=== PATIENT | female | born 1950 | race Caucasian/White ===

== ENCOUNTER 2023-03-09 07:48 | Outpatient (CLI) | payer MEDICARE ==
[2023-03-09] MEDS ORDERED: iohexoL-300 100 ML VIAL IVP ONE (08:33)
--- NOTE | 2023-03-09 09:34 | CT Report ---
PROCEDURE: IVP INDICATIONS: HIST OF NEPHROLITHIASIS CONTRAST: 140ml omni 300 TECHNIQUE: After the administration of intravenous contrast, 5 mm thick sections acquired from the diaphragms to the symphysis. 5 mm thick coronal and sagittal reformats were acquired. For radiation dose reducti on, the following was used: automated exposure control, adjustment of mA and/or kV according to augustine ent size. COMPARISON: None. FINDINGS: Image quality: Excellent. Urinary system: Both kidneys are normal in size. There is mild fullness of the right upper pole with out evidence of obstructing stone. There are several nonobstructing stones within the right kidney me asuring up to 4 mm. No solid masses or complex cysts which require follow up. The opacified renal tanja yces and ureters appear normal, without filling defect. Bladder wall thickness is normal, accounting for underdistention. No calcified bladder stones. No filling defect within the opacified bladder. OTHER Lung bases and heart: The lung bases are unremarkable. Mild coronary artery calcifications. The heart is normal in size. Liver: No solid mass. Gallbladder and biliary tree: No radiopaque stones or wall thickening. No biliary dilation. Spleen: No splenomegaly. Pancreas: No pancreatic ductal dilation. Adrenals: No adrenal nodule. Bowel and peritoneum: Small hiatal hernia. Status post sleeve gastrectomy. No bowel distension. No pa thologic free fluid. Abdominal Lymph nodes: No central or retroperitoneal adenopathy. Vessels: Mild atherosclerotic vascular calcifications. Reproductive organs: Unremarkable. Pelvic Lymph nodes: Unremarkable. Bones: No aggressive osseous abnormality. Mild degenerative changes. Other: None. IMPRESSION: 1.Several nonobstructing stones within the right kidney measuring up to 4 mm. 2.Mild fullness of the right upper pole calyx without evidence of obstructing stone or mass, likely p hysiologic. 3.Small hiatal hernia. Post surgical changes from sleep gastrectomy. Reviewed by: Pierre Rowland MD on 03/09/2023 9:32 AM PDT Approved by: Pierre Rowland MD on 03/09/2023 9:32 AM PDT Station ID: [id number]
== END 2023-03-09 07:49 | disposition home or self-care (01) ==
LOC: DI 07:48
PROVIDERS: ATTEND Physician Assistant
DX: N20.0 Calculus of kidney (principal); Z87.442 Personal history of urinary calculi; K44.9 Diaphragmatic hernia without obstruction or gangrene; E11.311 Type 2 diabetes mellitus with unspecified diabetic retinopathy with macular edema
CPT/HCPCS: 74178; Q9967

== ENCOUNTER 2023-05-06 07:30 | Outpatient (CLI) | payer MEDICARE | END 2023-05-06 07:45 | disposition home or self-care (01) | LOC: LAB.N 07:30 | PROVIDERS: ATTEND Physician Assistant Medical | DX: N30.90 Cystitis, unspecified without hematuria (principal) | CPT/HCPCS: 87086; 87181 ==

== ENCOUNTER 2023-05-08 08:00 | Outpatient (CLI) | payer MEDICARE | END 2023-05-08 08:15 | disposition home or self-care (01) | LOC: LAB.N 08:00 | PROVIDERS: ATTEND Nurse Practitioner | DX: N39.0 Urinary tract infection, site not specified (principal) | CPT/HCPCS: 87086 ==

== ENCOUNTER 2023-05-13 08:00 | Outpatient (CLI) | payer MEDICARE | END 2023-05-13 23:59 | disposition home or self-care (01) | LOC: LAB.WCP 08:00 | PROVIDERS: ATTEND Physician Assistant Medical | DX: N39.0 Urinary tract infection, site not specified (principal) | CPT/HCPCS: 87077; 87086; 87181 ==

== ENCOUNTER 2023-07-18 07:49 | Outpatient (CLI) | payer MEDICARE ==
[2023-07-18 12:35] LABS: BASOPHILS % (AUTO) 0.5 %; EOSINOPHILS # (AUTO) 0.1 10^3/uL (0.0-0.7); EOSINOPHILS % (AUTO) 1.7 %; HCT - HEMATOCRIT 44.5 % (37.0-47.0); HGB - HEMOGLOBIN 13.8 g/dL (12.0-16.0); LYMPHOCYTES # (AUTO) 2.4 10^3/uL (1.5-3.5); LYMPHOCYTES % (AUTO) 31.6 %; MEAN CORPUSCULAR HEMOGLOBIN 28.4 pg (27.0-31.0); MEAN CORPUSCULAR VOLUME 91.6 fL (81.0-99.0); MEAN PLATELET VOLUME 11.2 fL (7.9-10.8); MONOCYTES # (AUTO) 0.7 10^3/uL (0.0-1.0); MONOCYTES % (AUTO) 9.6 %; NEUTROPHILS # (AUTO) 4.2 10^3/uL (1.5-6.6); NEUTROPHILS % (AUTO) 56.2 %; PLT - PLATELET COUNT 270 10^3/uL (130-450); RED BLOOD COUNT 4.86 10^6/uL (4.20-5.40); RED CELL DISTRIBUTION WIDTH 13.7 % (12.0-15.0); WHITE BLOOD COUNT 7.5 x10^3/uL (4.8-10.8)
[2023-07-18 12:42] LABS: ESTIMATED AVERAGE GLUCOSE 183 mg/dL (70-100)
[2023-07-18 12:54] LABS: ALBUMIN/GLOBULIN RATIO 1.3 (1.0-2.2); BILIRUBIN,TOTAL 0.3 mg/dL (0.2-1.0); CALCIUM 9.6 mg/dL (8.5-10.3); CREATININE 0.9 mg/dL (0.6-1.3); POTASSIUM 3.9 mmol/L (3.5-4.5); TOTAL PROTEIN 7.1 g/dL (6.4-8.9)
[2023-07-18 13:04] LABS: THYROID STIMULATING HORMONE 0.76 uIU/mL (0.34-5.60)
== END 2023-07-18 07:50 | disposition home or self-care (01) ==
LOC: LAB.N 07:49
PROVIDERS: ATTEND Physician Assistant
DX: E11.311 Type 2 diabetes mellitus with unspecified diabetic retinopathy with macular edema (principal); E03.9 Hypothyroidism, unspecified
CPT/HCPCS: 36415; 80053; 83036; 84443; 85025

== ENCOUNTER 2023-11-21 12:24 | Outpatient (CLI) | payer MEDICARE ==
--- NOTE | 2023-11-21 15:26 | Ultrasound Report ---
PROCEDURE: Soft Tissue Head or Neck INDICATIONS: PAIN IN THYROID, DYSPAGIA TECHNIQUE: Real-time scanning was performed of the thyroid gland, with image documentation. COMPARISON: None FINDINGS: Right: Thyroid lobe measures 3.6 x 1.7 x 5.0 cm. Left: Surgically absent. Isthmus: 0.4 cm thick. Echotexture: Homogeneous. Nodule number: One Location: Right Size: 0.8 x 0.4 x 0.6 cm. Composition: Spongiform (0 points). Echogenicity: Hypoechoic. Shape: wider than tall (0 points). Margins: Smooth (0 points). Echogenic foci: None (0 points). Total points: 2 ACR TI-RADS category: TI-RADS 2: Not suspicious. IMPRESSION: Spongiform subcentimeter nodule in the right thyroid lobe. No follow-up is necessary. ACR TI-RADS definitions and recommendations: TI-RADS 1 (benign): 0 points. FNA not needed. TI-RADS 2 (not suspicious): 2 points. FNA not needed. TI-RADS 3 (mildly suspicious): 3 points. "FNA if 2.5 cm or larger, follow up if 1.5 cm or larger (at 1, 3, and 5 years). TI-RADS 4 (moderately suspicious): 4-6 points. "FNA if 1.5 cm or larger, follow up if 1 cm or larger (at 1, 2, 3, and 5 years). TI-RADS 5 (highly suspicious): 7 points or more. "FNA if 1 cm or larger, follow up if 0.5 cm or larger (every year for 5 years). Reviewed by: Pierre Rowland MD on 11/21/2023 3:25 PM PDT Approved by: Pierre Rowland MD on 11/21/2023 3:25 PM PDT Station ID: [id number]
== END 2023-11-21 12:25 | disposition home or self-care (01) ==
LOC: DI 12:24
PROVIDERS: ATTEND Physician Assistant
DX: E04.1 Nontoxic single thyroid nodule (principal)

== ENCOUNTER 2024-01-21 15:15 | Outpatient (CLI) | payer MEDICARE ==
--- NOTE | 2024-01-21 16:15 | Sleep Patient Instructions ---
Sleep Center Visit Summary - Patient Visit Information Reason for Visit: Initial Consultation - Patient Instructions Additional Instructions: You will continue with CPAP therapy with pressure set at 10-20 cmH2O. We need to update your sleep study. You will be completing a sleep study, either an in-lab polysomnography (PSG) or home sleep study (HST). You will follow-up in the sleep care office after the sleep study is completed to hear the results and talk about therapy, if needed. You will be called by our office staff to schedule this appointment, but you may contact us with any questions. - Clinic Information Contact: [facility] [address] [place] [address] [email or web address] T: [phone]
--- NOTE | 2024-01-21 16:21 | SLEEP CARE CONSULTATION ---
Information from patient questionnaire entered by Jad Anaya. I have reviewed and concur with the information entered by Jad Anaya. This document represents the service I personally performed and the decisions made by me, Jacqueline Pinzon ARNP. History of Present Illness Service Date and Time: 01/21/2024 1515 Reason for Visit: New patient, Previously diagnosed sleep apnea, sleep apnea on CPAP therapy Chief Complaint: reports: Insomnia, Unrefreshed sleep, Excessive daytime sleepiness, Observed pauses in breathing, Fatigue, Frequent awakenings at night, Other (UPDATE SUPPLIES) Date of Onset: LONG I CAN REMEMBER Usual bedtime: 7513-4409 Time it takes to fall asleep: NOT VERY LONG Snores at night: Yes Observed to quit breathing while asleep: Yes Sleeps alone due to snoring: No Number of times waking at night: SEVERAL TIMES Reasons for waking at night: reports: Pain, Bathroom, Other (UNKNOWN , NOISE). denies: Choking, Gasping for air Toss, Turn, or Twitch while sleeping: Yes Recalls having dreams: Yes Usually gets out of bed at: 6353-4836 Feels refreshed in the morning: Yes Morning headache: No Sleepy or fatigued during the day: Yes Ever fallen asleep while driving: No Takes day naps: Yes Dreams during day naps: No Prior sleep studies: Yes Type of Sleep Study: Home sleep study ([id number] in [place]) Additional HPI information: SHAHRIAR GOOD was previously diagnosed to have unknown, AHI unkown, sleep apnea-hypopnea syndrome but she was told she was waking up 42 times an hour and comes in today to establish care for CPAP therapy. She thinks the initial diagnosis of sleep apnea was anywhere from 10 to 15 years ago. She says she does not have a copy of those results but she may have severe obstructive sleep apnea. - Parasomnia Symptoms Ever been unable to move upon waking from sleep: No Walks in sleep: No Talks in sleep: No Ever acted out dreams in sleep: Yes Ever felt weak in the knees when startled or emotional: Yes Bothered by creepy, crawly, restless sensations in legs: No Problems with memory or concentration: Yes CPAP Compliance Data - Data Reviewed with Patient Average duration of nightly device use: 7 hours 40 mins Compliance rate %: 0 Current pressure setting (cmH2O): 10-20 Average residual AHI: 6.4 Average large leak: 2 mins Compliance data discussion: Her machine is not giving all her data. She is using her machine every night but no data was retrieved before or after August 2023. She says it turned on and works fine so far every night. When we were trying to retrieve data the touch screen will not work and we are unable to access any settings or data information. She is using a nasal pillows mask. She has a Dreamstation 2. She has not been able to get more supplies for over a year. Subjective Patient concerns: denies: aerophagia, mask discomfort, air blowing in eyes, mask leak noise, condensation in mask/hose, nasal congestion, dry mouth, nose, throat, epistaxis Observed to snore while using device: No Current pressure setting perceived as: comfortable On therapy, patient: reports: sleeping better, awakening more refreshed, being more awake and alert during the day, more rested overall. denies: drowsiness while driving Initial [place] Sleepiness Scale score: 12 (01/21/24) Past Medical History Past Medical History: reports: Hypertension, Diabetes, Arthritis, Insulin resistance, Hypothyroidism, Fibromyalgia Social History The patient's occupation is a RE. Patient is and lives in . Have you smoked in the past 12 months: No Alcohol use: No Caffeine use: Yes Caffeine amount and frequency: 1 CUP OCCASSIONALLY Family History Family history of sleep disordered breathing: Yes Family Hx Sleep Apnea: Sibling: Snoring Allergies and Home Medications Known drug allergies: Yes ( LISTED) Drug allergies reviewed: Yes Home medication list reviewed: Yes (as listed) Allergy and home medication list: Allergies codeine Allergy (Verified 01/21/24 15:30) Sulfa (Sulfonamide Antibiotics) Allergy (Verified 01/21/24 15:30) zinc Allergy (Verified 01/21/24 15:30) BETA BLOCKERS Allergy (Uncoded 01/21/24 15:30) Medications: Farxiga Toujeo insulin Victoza Metroprolol Lorsartan Amlodipine Isosorbide Levothyroixine Tizanidine Review of Systems Weight gain over past 5 years: 40 Cardiovascular: reports: high blood pressure Gastrointestinal: reports: difficulty swallowing, nausea Urinary: reports: incontinence, frequency Neurological: reports: headaches Psychiatric: reports: claustrophobia Ear/Nose/Throat: reports: nasal congestion, dry mouth/throat, tonsillectomy, wisdom teeth removed Endocrine: reports: thyroid disease, sluggishness, too hot or cold, excessive thirst, increased appetite, increased urination, unexplained weakness Musculoskeletal: reports: joint pain, neck pain, muscle pain or cramping, mobility problems Immunologic: reports: sneezing, rash, itching, allergies to food or environment Physical Exam Vital signs obtained and entered by: JAD Mcmanus MA Blood Pressure: 187/83 (LEFT ) Cuff size: regular Heart Rate: 69 O2 Saturation: 97 Height: 5 ft 5 in Weight: 264 lb 3.2 oz Body Mass Index: 43.9 BMI Classification: Morbidly Obese Neck circumference: 17.5 Mouth and throat: narrow oropharynx Soft palate: long Hard palate: normal Uvula: normal Uvula visualization: 50% Mallampati Class II Tongue: enlarged in size with teeth gonzalez on lateral edges Tonsils: absent bilaterally Heart: regular rate and rhythm Lungs: clear bilaterally Impression and Plan 1. Obstructive Sleep Apnea-Hypopnea Syndrome, unknown, with good treatment compliance and good apnea control. On CPAP therapy, the patient has better sleep quality and is more rested overall. We do not have a copy of her last sleep study and it is unavailable. I will order a verifying diagnostic sleep study. When she comes back we will set her up with a [employer] and order a new [employer] ne since her DreamStation 2 electronics appear to be malfunctioning. She can use it at this time since it does seem to be turning on even if we cannot access the menu. Patient's apnea severity and rationale for treatment to reduce apnea, improve sleep quality and reduce cardiovascular and cerebrovascular events was reviewed. I also reviewed the benefit of consistent device use of CPAP for hypertension, diabetes, fibromyalgia. 2. Obesity, unspecified. Currently patients BMI is 43.9. Obesity increases the risk of apnea, CPAP pressure requirements and overall health risks especially cardiovascular and diabetes. Thus patient is advised to lose weight. * Continue auto CPAP pressure at 10-20 cmH2O * PSG/HST to verify diagnosis and severity * Notify me if snoring with mask or feeling that the pressure is too much or too little * Attempt to lose weight * Call this office if any problems using CPAP * Return for follow up after sleep study, or sooner if concerns arise Counseling Topics: Weight loss health impact Plan: PSG/HST and followup Visit Type: In Office Time Spent with Patient (minutes): 32 Provider Statement: I spent 100% of the Face to Face Visit with the patient with greater than 50% spent counseling the patient and coordination of care.
[2024-01-21 16:30] VITALS: BP 187/83; O2SAT 97
== END 2024-01-21 15:16 | disposition home or self-care (01) ==
LOC: SC 15:15
PROVIDERS: ATTEND Nurse Practitioner Family
DX: G47.33 Obstructive sleep apnea (adult) (pediatric) (principal); E66.01 Morbid (severe) obesity due to excess calories; Z68.41 Body mass index [BMI] 40.0-44.9, adult
CPT/HCPCS: 99203; G0463; 99212

== ENCOUNTER 2024-02-25 19:25 | Outpatient (CLI) | payer MEDICARE | END 2024-02-25 19:26 | disposition home or self-care (01) | LOC: SC 19:25 | PROVIDERS: ATTEND Nurse Practitioner Family | DX: G47.33 Obstructive sleep apnea (adult) (pediatric) (principal); G47.61 Periodic limb movement disorder; E11.9 Type 2 diabetes mellitus without complications; I10 Essential (primary) hypertension | CPT/HCPCS: 95810 ==

== ENCOUNTER 2024-02-26 07:47 | Outpatient (CLI) | payer MEDICARE ==
--- NOTE | 2024-03-06 16:06 | Mammography Report ---
BILATERAL DIGITAL SCREENING MAMMOGRAM 3D/2D: 02/26/2024 CLINICAL: Routine screening. No prior exams were available for comparison. There are scattered areas of fibroglandular density (category b / 25%-50% glandular tissue). There is a low density focal asymmetry with grouped punctate calcifications in the right breast at 9 o'clock middle depth. No other significant masses, calcifications, or other findings are seen in either breast. IMPRESSION: INCOMPLETE: NEED ADDITIONAL IMAGING EVALUATION The low density focal asymmetry in the right breast is indeterminate. Additional views with possible ultrasound are recommended. Based on the Tyrer Cuzick model (a risk assessment model) the patient's lifetime risk is 5.3% and her 10 year risk is 4.0%. According to the ACR, ACS, and NCCN guidelines, an annual breast MRI exam taurus g with mammogram is recommended if the patient's lifetime risk is 20% or greater. This exam was interpreted at Station ID: [id number]. NOTE: For mammograms, a report in lay terms will be sent to the patient. Approximately 15% of breast malignancies will not be visualized mammographically. In the management of a palpable breast mass, a negative mammogram must not discourage biopsy of a clinically suspicious lesion. Electronically Signed By: Emil lowry/reji:03/06/2024 14:26:42 ACR BI-RADS Category 0: Incomplete: Need Additional Imaging Evaluation PARENCHYMAL PATTERN: (A) - The breast(s) demonstrate(s) scattered fibroglandular densities. BI-RADS CATEGORY: (0) - 0 Mammo and [place] [id number] Immediate follow-up LATERALITY: (R)
== END 2024-02-26 07:48 | disposition home or self-care (01) ==
LOC: DI 07:47
DX: Z12.31 Encounter for screening mammogram for malignant neoplasm of breast (principal); R92.8 Other abnormal and inconclusive findings on diagnostic imaging of breast

== ENCOUNTER 2024-03-05 13:36 | Outpatient (CLI) | payer MEDICARE ==
--- NOTE | 2024-03-05 14:01 | Sleep Patient Instructions ---
Sleep Center Visit Summary - Patient Visit Information Reason for Visit: Sleep study follow-up - Patient Instructions Additional Instructions: You will continue with CPAP therapy with pressure set at 10-20 cmH2O. Please let us know if the pressure change is uncomfortable and we can make further adjustments of the pressure. A supply prescription with transfer of care to new DME supplier will be sent. I have added an order to update your PAP machine. Please call the office to schedule a compliance follow up once you get your new device. Please follow up with the sleep care office one month after obtaining new device. - Clinic Information Contact: [facility] [address] [place] [address] [email or web address] T: [phone]
--- NOTE | 2024-03-05 14:06 | SLEEP CARE CONSULTATION ---
Information from patient questionnaire entered by Aida Grande. I have reviewed and concur with the information entered by Aida Grande. This document represents the service I personally performed and the decisions made by , Jacqueline Pinzon ARNP. History of Present Illness Service Date and Time: 03/05/2024 2018 Initial [place] Sleepiness Scale score: 12 (01/21/24) Current [place] Sleepiness Scale score: 10 (03/05/24) Additional HPI information: SHAHRIAR GOOD returns for follow up and results of the recently performed polysomnography. The sleep study done on 02/25/24 showed severe obstructive sleep apnea with an average AHI of 51.7 and rosalina oxygen saturation of 76%. She had mild PLMs not contributing to sleep fragmentation. The patient opted will continue with the nasal CPAP therapy set at 10-20 cmH20. She has been on a CPAP for a long time. Sleep Study - Results Type of Sleep Study: Home sleep study ([id number] in [place]) Prior sleep studies: Yes Polysomnography/Home Sleep Study results: IMPRESSION: The quality of the study is good. The patient had normal sleep efficiency. The sleep architecture was abnormal for sleep fragmentation and reduced amount of time spent in REM and slow wave sleep (N3). Respiratory monitoring showed severe obstructive sleep apnea-hypopnea (AHI = 51.7) associated with frequent arousals, oxyhemoglobin desaturation and moderate hypoxia (rosalina oxygen saturation of 76%). Baseline oxygen saturation was normal. The respiratory events occurred independently of sleep stage and body position (supine AHI = 90.0; non-supine = 50.04). Snore was moderate to loud in intensity. There was mild periodic leg movement of sleep, not contributing to the sleep fragmentation. Cardiac rhythm was normal sinus rhythm without significant arrhythmia. No abnormal behavior (parasomnia) observed during the night. Allergies and Home Medications Known drug allergies: Yes (as listed) Drug allergies reviewed: Yes Home medication list reviewed: Yes (no changes) Allergy and home medication list: Allergies azithromycin Allergy (Verified 01/21/24 16:00) codeine Allergy (Verified 01/21/24 15:30) Jjsjezr-NBP-EoW Reductase Inhibitor Allergy (Verified 01/21/24 16:00) Sulfa (Sulfonamide Antibiotics) Allergy (Verified 01/21/24 15:30) zinc Allergy (Verified 01/21/24 15:30) BETA BLOCKERS Allergy (Uncoded 01/21/24 15:30) Review of Systems Review of systems same as previous: Yes (no changes) Physical Exam Vital signs obtained and entered by: Jacqueline Lees NP Blood Pressure: 160/75 Cuff size: wrist (right) Heart Rate: 70 O2 Saturation: 96 Height: 5 ft 5 in Weight: 264 lb 9.6 oz Body Mass Index: 44.0 BMI Classification: Morbidly Obese Impression and Plan 1. Obstructive Sleep Apnea-Hypopnea Syndrome, severe, with lowest oxygen saturation of 76%. Obviously this is the cause of the patients symptoms of unrefreshed sleep, and excessive daytime sleepiness. Positive pressure therapy could benefit hypertension, diabetes, insulin resistance and fibromyalgia. The patient will resume on nasal autoCPAP therapy with pressure set at 10-20 cmH2O. Compliance guidelines also reviewed. A copy of compliance guidelines will be given for reference at check out. 2. Hypoxemia, moderate, with a rosalina oxygen saturation of 76% and 21.8 minutes spent under 90%. The baseline oxygen saturation was normal with an average oxygen saturation of 92%. 3. Periodic limb movement, mild, that did not fragment patients sleep. Periodic limb movement of sleep (PLMS) is characterized by episodes of repetitive limb movements that occur during sleep and usually involve the lower limbs. The etiology is unknown. Patient was advised that no treatment is needed at this time. If symptoms increase, then further evaluation is indicated. 4. Obesity, unspecified. Currently patients BMI is 44. Obesity increases the risk of apnea, CPAP pressure requirements and overall health risks especially cardiovascular and diabetes. Thus patient is advised to lose weight. * Nasal auto CPAP therapy, pressure at 10-20 cm H2O. * Attempt to lose weight. * Avoid supine sleep until using CPAP. * Return one month after CPAP obtained. I will assess response to therapy and compliance at that time. Counseling Topics: Weight loss health impact Prescriptions: Auto CPAP Follow up with Sleep Care in: other (compliance follow up) Visit Type: In Office Time Spent with Patient (minutes): 21 Provider Statement: I spent 100% of the Face to Face Visit with the patient with greater than 50% spent counseling the patient and coordination of care.
[2024-03-05 14:11] VITALS: BP 160/75; O2SAT 96
== END 2024-03-05 13:37 | disposition home or self-care (01) ==
LOC: SC 13:36
PROVIDERS: ATTEND Nurse Practitioner Family
DX: G47.33 Obstructive sleep apnea (adult) (pediatric) (principal); R09.02 Hypoxemia; G47.61 Periodic limb movement disorder; E66.01 Morbid (severe) obesity due to excess calories; Z68.41 Body mass index [BMI] 40.0-44.9, adult
CPT/HCPCS: 99213; G0463; 99212